=== PATIENT | male | born 1940 | race Asian ===

== ENCOUNTER 2020-06-20 13:15 | Inpatient (IN) | payer MEDICARE, MEDICAID ==
[~2020-06-20] VITALS: Ht 170.2 cm; Wt 65.3 kg
[2020-06-20 13:15] VITALS: BP 130/76
[~2020-06-20 13:15] MED LIST: IBUPROFEN600 MG ORAL
--- NOTE | 2020-06-20 13:15 | NUR ---
ED Nurse Note: Patient YAMILE RA29 from home c/o headache x1 day. Denies head trauma. Hx of dementia. AAOx3, verbally responsive but forgetful. Breathing even and unlabored, on room air. Afebrile. Pt palced on medication manager.
--- NOTE | 2020-06-20 14:02 | Emergency Room Report ---
History of Present Illness General Chief Complaint: Headache Source: EMS Present Illness HPI 79-year-old Japanese male with past medical history of dementia presents with headache x1 day. Is also complaining of generalized weakness and points to his chest saying "it hurt". Also complains of difficulty urinating He is unable to describe pain as sharp or pressure-like. He states it stays "right here" and is nonradiating. Denies history of similar symptoms. Denies head trauma, loss of consciousness, fall, neck pain, rash, nausea or vomiting. History is limited secondary to patient's dementia The patient's symptoms were gradual onset, severity was moderate, duration since day. Quality: Hurting Past medical history: Dementia Past surgical history: Denies Smoking: Unable to obtain Alcohol use: Unable to obtain Drug use: Unable to obtain Review of systems: CONST: No fevers or chills, No night sweats PULMONARY: No productive cough, No shortness of breath CARDIAC: + chest pain, No palpitations GI: No vomiting, No diarrhea , No melena_or_BRBPR : + dysuria, No hematuria, No discharge NEURO: No new_focal_weakness_or_numbness, No confusion, No vision changes 14 point Review of Systems is otherwise negative except per HPI Physical Exam: GENERAL: Awake_alert_ nontoxic, no acute distress Spo2 96% on RA -normal EYES: Extraocular muscles are intact. Conjunctivae clear. Lids without swelling ENT: External nose and ear normal_in_appearance. Oropharynx clear. Head_ atraumatic, Moist_oral_mucosa NECK: No JVD. No meningismus. No thyromegaly. Supple. Trachea midline RESP: Normal respiratory effort. Symmetric rise. No stridor. Clear_to_ auscultation_No_rales_No_wheezes CARDIAC: Regular rate and regular rhythm on_auscultation peripheral with 3-4 pedal edema bilaterally ABDOMEN: Soft. Distended abdomen. Suprapubic tenderness to palpation. Nontender_No_rebound_or_guarding. MSK: Normal muscle tone, without rigidity. Extremities without asymmetric deformity or swelling. SKIN: Warm and dry. No visible cyanosis or pallor NEUROLOGIC: Alert, oriented x1. Motor_and_sensation_grossly_intact. No truncal ataxia. Gait_normal Psych: Normal mood and affect, normal judgment and insight - COORDINATION OF CARE Case was discussed with: Patient , Patient's Physician Any labs and imaging that were ordered were interpreted as part of the medical decision making: Medical Decision Making/Plan: Differential for the patients headache includes primary headache (migraine, tension, cluster), subarachnoid hemorrhage, intracranial mass / tumor, meningitis, encephalitis, increased intracranial pressure, mastoiditis, acute sinusitis, dural venous thrombosis, temporal arteritis, acute angle closure glaucoma, among others. Differential diagnosis CP 2/2 includes acute myocardial infarction, acute coronary syndrome and unstable angina, pulmonary embolism, pneumothorax, pneumonia, and aortic dissection, among others. Patient is currently well appearing with stable vitals. Currently afebrile and no signs of meningismus. EKG shows NSR. No evidence of STEMI, and initial troponin is negative. Chest xray shows bilateral atx vs early infiltrate. No evidence of pneumothorax or significant pleural effusion. UA is negative for urinary tract infection. Patient did have significant difficulty voiding. Therefore a Hicks catheter was inserted with retrieval of 1.9 L of straw-colored urine. Patient looks chronically debilitated. Unable to determine whether he is able to take care of himself at home. Due to his ongoing comorbid medical decisions and advanced age, Will admit to hospitalist Aspirin given. However, given that chest pain is currently resolved, risks likely outweigh benefits of IV heparin at this time, so deferred. The pain is not classic for pericarditis or myocarditis, and the patient has no significant risk factors for a pericardial effusion and has stable vitals signs , unlikely to have tamponade. Pain is not likely to be pulmonary embolism, patient has no significant PE risk factors. The presentation is not consistent with dissection, pain is not severe, radiating to back, or tearing in nature. Has normal bilateral radial and pedal pulses. Rocephin given for possible pneumonia. However given patients presentation and risk factors, patient will be admitted for serial troponins and risk stratification and evaluation for likely stress testing. This patient appears to be a suitable candidate for transfer to telemetry floor at this time with orders from the admitting physician who is aware of the patient's evaluation, ancillary test findings, and current condition, and agrees with treatment and disposition. I spoke with Dr. Degroot, and reviewed the patients presentation, workup, results , and treatment. They will admit the patient for further care and evaluation, and assume care of the patient at this time. Allergies: Coded Allergies: No Known Allergies (Unverified , 03/06/14) COVID-19 Screening Contact w/high risk pt: No Experienced COVID-19 symptoms?: No COVID-19 Testing performed PERFORMANCE TESTER: No Nursing Documentation-PMH Hx Diabetes: Yes Physical Exam Vital Signs Date Time Temp Pulse Resp B/P (MAP) Pulse Ox O2 Delivery O2 Flow Rate FiO2 06/20/20 13:11 98.1 63 19 130/76 (94) 96 Room Air Sp02 EP Interpretation: reviewed, normal Medical Decision Making Diagnostic Impression: Primary Impression: Headache Additional Impressions: Generalized weakness Urinary retention BPH (benign prostatic hyperplasia) Atelectasis Granulomatous lung disease EKG Diagnostic Results PA Scribe Text 12-lead EKG (interpreted by me) Time: 1502 Indication: Rhythm analysis Tracing visualized and Interpreted by me. Rhythm: Normal sinus rhythm Rate: 61 bpm QTc: 438 Morphology: No_significant_ST_elevations_or_depressions, No STEMI Impression: Normal_sinus_rhythm_without_significant_abnormality Rhythm Strip Diag. Results Rhythm Strip Time: 15:24 EP Interpretation: yes Rate: 65 Rhythm: NSR, no PVC's, no ectopy Other Impression Normal sinus rhythm Chest X-Ray Diagnostic Results Chest X-Ray Diagnostic Results : PA Scribe Text CXR 1 view Indication: Chest pain Impression: Mild patchy basilar opacities may represent atelectasis or developing infiltrate. Calcified granuloma right lung versus sclerotic rib focus. Ectatic appearing thoracic aorta. Cardiac silhouette appears borderline enlarged for technique. CT/MRI/US Diagnostic Results CT/MRI/US Diagnostic Results : Impression CT Head no Contrast FINDINGS: There is no acute intracranial hemorrhage, mass effect or cortical edema. Moderate cortical cerebral volume loss. Slight interval increase in size of ventricular system, which remains appropriate for degree of cerebral atrophy. Visualized mastoid air cells and paranasal sinuses are unremarkable. No focal lesions of the bony calvarium or soft tissues of the scalp are seen. IMPRESSION: No evidence of acute intracranial hemorrhage, mass effect or cortical edema. Reevaluation Time: 15:25 Last Vital Signs Date Time Temp Pulse Resp B/P (MAP) Pulse Ox O2 Delivery O2 Flow Rate FiO2 06/20/20 13:15 98.1 63 19 130/76 96 Room Air Status: improved Disposition: ADMITTED INPATIENT Admit Decision Time: 16:06 Condition: Stable Patel,Samara D.O. Jun 20, 2020 14:01
--- NOTE | 2020-06-20 14:51 | Diagnostic Imaging Report ---
CT HEAD WITHOUT CONTRAST INDICATION: Headache and vomiting Technique: Continuous helical CT scanning of the head was performed without intravenous contrast material. Axial and coronal 5 mm sections were generated. Radiation dose was minimized using automated exposure control DOSE: Total Dose Length Product - DLP 964.[address] Dose Index - CTDIvol(s) 53.4 mGy. COMPARISON: Head CT dated 03/06/2014 FINDINGS: There is no acute intracranial hemorrhage, mass effect or cortical edema. Moderate cortical cerebral volume loss. Slight interval increase in size of ventricular system, which remains appropriate for degree of cerebral atrophy. Visualized mastoid air cells and paranasal sinuses are unremarkable. No focal lesions of the bony calvarium or soft tissues of the scalp are seen. IMPRESSION: No evidence of acute intracranial hemorrhage, mass effect or cortical edema. The CT scanner at [facility] is accredited by the [employer] and the scans are performed using protocols designed to limit radiation exposure to as low as reasonably achievable to attain images of sufficient resolution adequate for diagnostic evaluation.
[2020-06-20 15:15] VITALS: BP 134/73
[2020-06-20 15:29] LABS: ANION GAP 9 mmol/L (5-15); BLOOD UREA NITROGEN 19 mg/dL (7-18); CALCIUM 8.7 MG/DL (8.5-10.1); CARBON DIOXIDE 26 MMOL/L (21-32); CHLORIDE 96 MMOL/L (98-107); CREATININE 1.2 MG/DL (0.55-1.30); SODIUM 131 MMOL/L (136-145)
[2020-06-20 15:31] LABS: INR 0.9 (0.9-1.1)
[2020-06-20 15:33] LABS: ALANINE AMINOTRANSFERASE 63 U/L (12-78); ALBUMIN 2.8 G/DL (3.4-5.0); ALBUMIN/GLOBULIN RATIO 0.6 (1.0-2.7); ALKALINE PHOSPHATASE 615 U/L (46-116); ASPARTATE AMINO TRANSFERASE 44 U/L (15-37); BILIRUBIN,TOTAL 0.6 MG/DL (0.2-1.0)
[2020-06-20 15:50] LABS: BASOPHILS % (AUTO) 0.9 % (0.0-2.0); EOSINOPHILS % (AUTO) 1.8 % (0.0-3.0); HEMATOCRIT 32.5 % (42.0-52.0); HEMOGLOBIN 10.7 G/DL (14.2-18.0); LYMPHOCYTES % (AUTO) 17.8 % (20.0-45.0); MEAN CORPUSCULAR VOLUME 90 FL (80-99); MONOCYTES % (AUTO) 5.1 % (1.0-10.0); NEUTROPHILS % (AUTO) 74.4 % (45.0-75.0); PLATELET COUNT 288 K/UL (150-450); RED BLOOD COUNT 3.62 M/UL (4.70-6.10); RED CELL DISTRIBUTION WIDTH 13.2 % (11.6-14.8); WHITE BLOOD COUNT 8.9 K/UL (4.8-10.8)
[2020-06-20] MEDS ORDERED: Metoclopramide 10mg/2ml Inj IVP ONE (16:00)
[2020-06-20] MEDS ORDERED: DiphenhydrAMINE 50mg/ml Inj IVP ONE (16:00)
[2020-06-20] MEDS ORDERED: Aspirin Baby 81mg ORAL ONE ×2 (16:15)
[2020-06-20] MEDS ORDERED: cefTRIAXone 1 GM in NS 55 ML IVPB ONE ×4 (16:15)
[2020-06-20 16:36] LABS: APPEARANCE,URINE CLEAR; BILIRUBIN, URINE NEGATIVE (NEGATIVE); COLOR,URINE PALE YELLOW; GLUCOSE, URINE (UA) 4+ (NEGATIVE); KETONES,URINE 2+ (NEGATIVE); LEUKOCYTE ESTERASE ,URINE NEGATIVE (NEGATIVE); NITRITE,URINE NEGATIVE (NEGATIVE); PH,URINE 5 (4.5-8.0); PROTEIN,URINE NEGATIVE (NEGATIVE); UROBILINOGEN,URINE NORMAL MG/DL (0.0-1.0)
[2020-06-20 17:12] VITALS: BP 131/77
--- NOTE | 2020-06-20 17:54 | Diagnostic Imaging Report ---
History: PAIN Exam: XR CXR 1 VIEW Comparison: FINDINGS: Mild patchy basilar opacities may represent atelectasis or developing infiltrate. Calcified granuloma right lung versus sclerotic rib focus. Ectatic appearing thoracic aorta. Cardiac silhouette appears borderline enlarged for technique. IMPRESSION: Mild patchy basilar opacities may represent atelectasis or developing infiltrate. Calcified granuloma right lung versus sclerotic rib focus. Ectatic appearing thoracic aorta. Cardiac silhouette appears borderline enlarged for technique.
--- NOTE | 2020-06-20 18:40 | NUR ---
ED Nurse Note: Report given to Demarcus ESCALERA.
[2020-06-20 18:41] VITALS: BP 129/74
--- NOTE | 2020-06-20 18:55 | NUR ---
ED Nurse Note: Pt transferred to tele unit with all belongings. No acute distress.
--- NOTE | 2020-06-20 19:18 | NUR ---
NURSE NOTES: Received patient via hospital bed. On room air, respirations unlabored. IV in the Right forearm, site intact. Reports pain over bladder, relief provided with repositioning. Bed low and locked, side rails up x2, oriented to room and surroundings and use of call light with return demonstration.
--- NOTE | 2020-06-20 19:30 | NUR ---
NURSE NOTES: Received patient report from JW Joe. Patient is a new admission brought from ED. Patient shows no signs of distress or pain at the time. Patient is AO x2. Patient was connected to cardiac rehab nurse and is on Sinus Rhythm. Belongings list checked and recorded. IV is patent and flushed. There are no signs of erythema, infiltration, or bleeding. Sacrum and heels checked, pictures are taken. Hicks catheter patent and draining. Vitals are within normal range. Bed is in the lowest position, call light is within reach, side rails up x3. Contacted Dr. Degroot for admission orders.Will continue plan of care.
--- NOTE | 2020-06-20 19:40 | NUR ---
NURSE HAND-OFF REPORT: Important Events on Shift:[admission] Patient Status: [] Diet: [pending] Pending Orders: [admission orders] Pending Results/Labs:[] Pending MD notification:[admission orders] Latest Vital Signs: Temperature 98.3 , Pulse 86 , B/P 125 /76 , Respiratory Rate 16 , O2 SAT 98 , Room Air, O2 Flow Rate . Vital Sign Comment: [] EKG Rhythm: Sinus Rhythm Rhythm change?: MD Notified?: - MD Response: Latest Hawkins Fall Score: Fall Risk: Safety Measures: Call light , Bed Alarm , Side Rails , Bed position . Fall Precautions: Report given to [Madhuri ESCALERA].
[2020-06-20 20:00] VITALS: BP 158/66
--- NOTE | 2020-06-20 20:00 | NUR ---
NURSE NOTES: Dr. Irene informed of blood pressure being 158/66. He ordered Clonidine 0.2 mg PO Q4 PRN for SBP >170.
[2020-06-20] MEDS ORDERED: cloNIDine 0.2mg Tab ORAL PRN (21:30)
[2020-06-20] MEDS: Heparin 5000 units/ml inj SUBQ SCH (22:49)
[2020-06-21] VITALS: BP 150/58
[2020-06-21 04:00] VITALS: BP 139/58
--- NOTE | 2020-06-21 05:30 | NUR ---
NURSE NOTES: EKG done. Shows Sinus Rhythm. Will notify patient.
[2020-06-21] MEDS: NovoLOG Insulin Flexpen SUBQ SCH ×3 (06:26→16:56)
--- NOTE | 2020-06-21 07:39 | NUR ---
HAND-OFF: Report given to JW Reyes. Patient shows no signs of distress or pain at the time. Endorsed plan of care.
--- NOTE | 2020-06-21 07:49 | NUR ---
NURSE NOTES: Received report from JW Dhaliwal. Pt Awake, alert. No s/s of acute respiratory and cardiac distress. No c/o pain. IVF infusing on right FA. F/C draining dark lc colored urine with minimal amount of blood clots seen on tubing. Bed in low position, side rails up x3 and call light within reach. Will continue to monitor.
[2020-06-21 08:00] VITALS: BP 138/60
[2020-06-21 08:25] LABS: BASOPHILS % (AUTO) 0.8 % (0.0-2.0); EOSINOPHILS % (AUTO) 2.2 % (0.0-3.0); HEMATOCRIT 32.1 % (42.0-52.0); HEMOGLOBIN 10.5 G/DL (14.2-18.0); LYMPHOCYTES % (AUTO) 18.6 % (20.0-45.0); MEAN CORPUSCULAR VOLUME 89 FL (80-99); NEUTROPHILS % (AUTO) 72.5 % (45.0-75.0); PLATELET COUNT 289 K/UL (150-450); RED CELL DISTRIBUTION WIDTH 12.6 % (11.6-14.8); WHITE BLOOD COUNT 7.3 K/UL (4.8-10.8)
[2020-06-21 08:40] LABS: ANION GAP 9 mmol/L (5-15); CALCIUM 7.8 MG/DL (8.5-10.1); CARBON DIOXIDE 26 MMOL/L (21-32); CHLORIDE 103 MMOL/L (98-107); CREATININE 1.1 MG/DL (0.55-1.30); POTASSIUM 3.8 MMOL/L (3.5-5.1); SODIUM 138 MMOL/L (136-145)
[2020-06-21 08:56] LABS: BLOOD UREA NITROGEN 16 mg/dL (7-18)
[2020-06-21] MEDS: Heparin 5000 units/ml inj SUBQ SCH ×2 (09:19→22:25)
--- NOTE | 2020-06-21 11:33 | NUR ---
*-* DISCHARGE PLANNING*-* PATIENT HAS BEEN REFERRED TO: DALTON MACDONALD P: [phone]
[2020-06-21 12:00] VITALS: BP 142/56
--- NOTE | 2020-06-21 13:29 | Cardiac Electrophysiology PN ---
Subjective Subjective [id number] Objective Last 24 Hour Vital Signs Date Time Temp Pulse Resp B/P (MAP) Pulse Ox O2 Delivery O2 Flow Rate FiO2 06/21/20 12:00 97.5 64 20 142/56 (84) 98 06/21/20 09:00 Room Air 06/21/20 08:00 73 06/21/20 08:00 97.7 73 18 138/60 (86) 97 06/21/20 04:00 97.9 60 18 139/58 (85) 97 06/21/20 04:00 58 06/21/20 00:00 59 06/21/20 00:00 98.2 59 18 150/58 (88) 100 06/20/20 23:46 Room Air 06/20/20 20:00 97.7 62 20 158/66 (96) 99 06/20/20 19:35 62 06/20/20 18:55 98.3 86 16 125/76 98 06/20/20 18:41 98.1 73 17 129/74 98 Room Air 06/20/20 17:12 98.1 65 18 131/77 97 Room Air 06/20/20 15:15 98.1 67 17 134/73 98 Room Air Intake and Output 06/20/20 06/21/20 19:00 07:00 Output Total 1600 ml 620 ml Balance -1600 ml -620 ml Output Urine Total 1600 ml 620 ml Laboratory Tests Test 06/20/20 14:55 06/20/20 16:06 06/20/20 23:00 06/21/20 00:55 White Blood Count 8.9 K/UL (4.8-10.8) Red Blood Count 3.62 M/UL (4.70-6.10) L Hemoglobin 10.7 G/DL (14.2-18.0) L Hematocrit 32.5 % (42.0-52.0) L Mean Corpuscular Volume 90 FL (80-99) Mean Corpuscular Hemoglobin 29.5 PG (27.0-31.0) Mean Corpuscular Hemoglobin Concent 32.8 G/DL (32.0-36.0) Red Cell Distribution Width 13.2 % (11.6-14.8) Platelet Count 288 K/UL (150-450) Mean Platelet Volume 6.0 FL (6.5-10.1) L Neutrophils (%) (Auto) 74.4 % (45.0-75.0) Lymphocytes (%) (Auto) 17.8 % (20.0-45.0) L Monocytes (%) (Auto) 5.1 % (1.0-10.0) Eosinophils (%) (Auto) 1.8 % (0.0-3.0) Basophils (%) (Auto) 0.9 % (0.0-2.0) Prothrombin Time 10.2 SEC (9.30-11.50) Prothromb Time International Ratio 0.9 (0.9-1.1) Activated Partial Thromboplast Time 25 SEC (23-33) Sodium Level 131 MMOL/L (136-145) L Potassium Level 4.0 MMOL/L (3.5-5.1) Chloride Level 96 MMOL/L (98-107) L Carbon Dioxide Level 26 MMOL/L (21-32) Anion Gap 9 mmol/L (5-15) Blood Urea Nitrogen 19 mg/dL (7-18) H Creatinine 1.2 MG/DL (0.55-1.30) Estimat Glomerular Filtration Rate 58.6 mL/min (>60) Glucose Level 320 MG/DL (74-106) H Calcium Level 8.7 MG/DL (8.5-10.1) Total Bilirubin 0.6 MG/DL (0.2-1.0) Aspartate Amino Transf (AST/SGOT) 44 U/L (15-37) H Alanine Aminotransferase (ALT/SGPT) 63 U/L (12-78) Alkaline Phosphatase 615 U/L (46-116) H Troponin I 0.007 ng/mL (0.000-0.056) 0.016 ng/mL (0.000-0.056) Total Protein 7.5 G/DL (6.4-8.2) Albumin 2.8 G/DL (3.4-5.0) L Globulin 4.7 g/dL Albumin/Globulin Ratio 0.6 (1.0-2.7) L Urine Color Pale yellow Urine Appearance Clear Urine pH 5 (4.5-8.0) Urine Specific [place] 1.010 (1.005-1.035) Urine Protein Negative (NEGATIVE) Urine Glucose (UA) 4+ (NEGATIVE) H Urine Ketones 2+ (NEGATIVE) H Urine Blood Negative (NEGATIVE) Urine Nitrite Negative (NEGATIVE) Urine Bilirubin Negative (NEGATIVE) Urine Urobilinogen Normal MG/DL (0.0-1.0) Urine Leukocyte Esterase Negative (NEGATIVE) POC Whole Blood Glucose 291 MG/DL (74-106) H Test 06/21/20 06:21 06/21/20 08:05 POC Whole Blood Glucose Pending White Blood Count 7.3 K/UL (4.8-10.8) Red Blood Count 3.60 M/UL (4.70-6.10) L Hemoglobin 10.5 G/DL (14.2-18.0) L Hematocrit 32.1 % (42.0-52.0) L Mean Corpuscular Volume 89 FL (80-99) Mean Corpuscular Hemoglobin 29.3 PG (27.0-31.0) Mean Corpuscular Hemoglobin Concent 32.8 G/DL (32.0-36.0) Red Cell Distribution Width 12.6 % (11.6-14.8) Platelet Count 289 K/UL (150-450) Mean Platelet Volume 5.7 FL (6.5-10.1) L Neutrophils (%) (Auto) 72.5 % (45.0-75.0) Lymphocytes (%) (Auto) 18.6 % (20.0-45.0) L Monocytes (%) (Auto) 6.0 % (1.0-10.0) Eosinophils (%) (Auto) 2.2 % (0.0-3.0) Basophils (%) (Auto) 0.8 % (0.0-2.0) Sodium Level 138 MMOL/L (136-145) Potassium Level 3.8 MMOL/L (3.5-5.1) Chloride Level 103 MMOL/L (98-107) Carbon Dioxide Level 26 MMOL/L (21-32) Anion Gap 9 mmol/L (5-15) Blood Urea Nitrogen 16 mg/dL (7-18) Creatinine 1.1 MG/DL (0.55-1.30) Estimat Glomerular Filtration Rate > 60 mL/min (>60) Glucose Level 351 MG/DL (74-106) H Calcium Level 7.8 MG/DL (8.5-10.1) L Troponin I 0.018 ng/mL (0.000-0.056) Toluie,Juno MD Jun 21, 2020 13:29
[2020-06-21] MEDS ORDERED: Lexiscan 0.4mg/5ml syringe IV PRN (13:30)
--- NOTE | 2020-06-21 15:45 | History and Physical Report ---
DATE OF ADMISSION: 06/20/2020 DATE AND TIME SEEN: 06/21/2020 at 9 a.m. CONSULTANTS: 1. Ferny Price MD. 2. Macarena Chen MD. 3. Juno Irene MD. CHIEF COMPLAINT: Chest pain, weakness, headache, peripheral edema. BRIEF HISTORY: This is a 79-year-old male, who lives at home, presented with above-mentioned diagnoses. Currently, sleeping in bed, not talking much. REVIEW OF SYSTEMS: Unavailable. PAST MEDICAL HISTORY: Dementia, BPH, weakness. PAST SURGICAL HISTORY: Unknown. ALLERGIES: Denies. MEDICATIONS: Include insulin, ibuprofen, clonidine, ceftriaxone, Reglan, Compazine. SOCIAL HISTORY: Unable to obtain secondary to the patient's lethargy. OBJECTIVE: GENERAL: Sleeping in bed, not talking much. VITAL SIGNS: Temperature is 97 degrees, pulse 73, respirations 18, blood pressure 130/60. CARDIOVASCULAR: No murmur. LUNGS: Distant and clear. ABDOMEN: Bowel sounds positive. Nontender. Nondistended. EXTREMITIES: No cyanosis, clubbing, or edema. NEUROLOGIC: The patient moves all extremities, slightly weak. LABORATORY AND DIAGNOSTIC DATA: Labs at this time show hemoglobin and hematocrit 10/32, otherwise CBC is normal. BMP shows glucose 351. Troponin 0.016, 0.018. Calcium . INR 0.9. Urinalysis 2+ ketones, 4+ glucose. ASSESSMENT: 1. Chest pain. 2. Weakness. 3. Headache. 4. Peripheral edema. 5. Anemia. 6. Diabetes. 7. Urinary retention. PLAN: 1. Troponin q.8 h. x3. 2. EKG in the morning. 3. Blood pressure, blood sugar, and pain control. 4. Dietary followup. 5. Resume home medications. 6. PT and dietary evaluation. 7. CBC and BMP in the morning. 8. We will add evaluation. Oscar Degroot D.O. DR: LIBERTAD JOB#: [id number] CC:
[2020-06-21 16:00] VITALS: BP 150/77
--- NOTE | 2020-06-21 16:15 | NUR ---
*-* DISCHARGE PLANNING*-* PATIENT HAS BEEN REFERRED TO: DALTON MACDONALD P: [phone] S/W LEAAN, REQUESTING PT NOTES, NEED PHYSICAL THERAPY NOTES.
[2020-06-21] MEDS: Memantine 5 MG TAB ORAL SCH (17:28)
--- NOTE | 2020-06-21 18:00 | Consultation ---
DATE OF CONSULTATION: 06/21/2020 CARDIOLOGY CONSULTATION REFERRING PHYSICIAN: Oscar Degroot D.O. REASON FOR THE CONSULTATION: Chest pain and headache. HISTORY OF PRESENT ILLNESS: The patient is a 79-year-old Arabic gentleman with history of dementia, presents to the emergency room with 1 day of headache as well as generalized weakness. The patient also pointed to his chest stating it hurts. The pain was pressure-like, was nonradiating. The patient's EKG did not show any acute ischemic changes. The patient was admitted and cardiology consultation was obtained for further management. REVIEW OF SYSTEMS: Negative other than what is mentioned in history of present illness. PAST MEDICAL HISTORY: As mentioned above. FAMILY HISTORY: Noncontributory. SOCIAL HISTORY: No history of smoking or drinking. PHYSICAL EXAMINATION: VITAL SIGNS: Blood pressure 142/56, pulse 64, respirations 20. NECK: No JVD. LUNGS: Clear. CARDIOVASCULAR: Regular S1 and S2 with no gallop or murmur. ABDOMEN: Soft. EXTREMITIES: No pitting edema. His EKG is normal. LABORATORY AND DIAGNOSTIC DATA: White count 7.7, hemoglobin 10.5, hematocrit 32, and platelet count of 289. Sodium 138, potassium 3.8, BUN of 16, creatinine 1.1, and glucose of 351. Troponin negative x2. ASSESSMENT AND PLAN: 1. Chest pain. EKG is nonischemic. The patient will be ruled out for myocardial infarction. We will get an echocardiogram and schedule the patient for a stress test on Tuesday. 2. Hypertension, on p.r.n. clonidine. 3. UTI, on ceftriaxone. Thank you very much for allowing me to participate in the care of this patient. Please do not hesitate to contact me for any questions regarding my evaluation. Juno Irene M.D. DR: REAL JOB#: [id number] CC:
[2020-06-21 20:00] VITALS: BP 143/70
[2020-06-21] MEDS: Levemir Flexpen SUBQ SCH (22:24)
[2020-06-22] VITALS (7 sets, daily range): BP systolic 126–167; BP diastolic 62–71
[2020-06-22] MEDS: NovoLOG Insulin Flexpen SUBQ SCH ×7 (07:16→21:00)
--- NOTE | 2020-06-22 07:53 | NUR ---
NURSE NOTES: report was delayed Jeremy/rn, was assisting another pt. pt on director of operations, no signs of cardiac or respiratory distress at this time. pt has no complains of pain at this time. Bed locked and in lowest position. Call light within reach, side rails up x2 for safety. Will continue to monitor pt.
[2020-06-22 07:58] LABS: BASOPHILS % (AUTO) 1.1 % (0.0-2.0); EOSINOPHILS % (AUTO) 3.5 % (0.0-3.0); HEMATOCRIT 32.9 % (42.0-52.0); LYMPHOCYTES % (AUTO) 28.2 % (20.0-45.0); MEAN CORPUSCULAR VOLUME 89 FL (80-99); MONOCYTES % (AUTO) 5.6 % (1.0-10.0); NEUTROPHILS % (AUTO) 61.7 % (45.0-75.0); PLATELET COUNT 324 K/UL (150-450); RED BLOOD COUNT 3.69 M/UL (4.70-6.10); RED CELL DISTRIBUTION WIDTH 12.4 % (11.6-14.8); WHITE BLOOD COUNT 7.8 K/UL (4.8-10.8)
--- NOTE | 2020-06-22 08:09 | NUR ---
HAND-OFF: Report given to Lucia Mullins RN. Pt in stable condition, plan of care endorsed.
[2020-06-22 08:15] LABS: ANION GAP 6 mmol/L (5-15); BLOOD UREA NITROGEN 8 mg/dL (7-18); CARBON DIOXIDE 28 MMOL/L (21-32); CHLORIDE 100 MMOL/L (98-107); CREATININE 1.1 MG/DL (0.55-1.30); POTASSIUM 2.8 MMOL/L (3.5-5.1); SODIUM 134 MMOL/L (136-145)
--- NOTE | 2020-06-22 08:51 | General Progress Note ---
Assessment/Plan Problem List: (1) Weak ICD Codes: R53.1 - Weakness SNOMED: 12728860 (2) Diabetes ICD Codes: E11.9 - Type 2 diabetes mellitus without complications SNOMED: 78979531 (3) Generalized weakness ICD Codes: R53.1 - Weakness SNOMED: 47115825 (4) Headache ICD Codes: R51 - Headache SNOMED: 68769628 (5) BPH (benign prostatic hyperplasia) ICD Codes: N40.0 - Benign prostatic hyperplasia without lower urinary tract symptoms SNOMED: 248960721 (6) Urinary retention ICD Codes: R33.9 - Retention of urine, unspecified SNOMED: 007118901 Status: unchanged Assessment/Plan: pt diet pain control cbc bmp am aru eval Subjective Constitutional: Reports: weakness Allergies: Coded Allergies: No Known Allergies (Unverified , 03/06/14) All Systems: reviewed and negative except above Subjective sleepy calm Objective Last 24 Hour Vital Signs Date Time Temp Pulse Resp B/P (MAP) Pulse Ox O2 Delivery O2 Flow Rate FiO2 06/22/20 08:46 63 126/62 (83) 06/22/20 08:15 97.5 68 18 167/68 (101) 97 06/22/20 04:00 57 06/22/20 04:00 97.9 57 20 141/66 (91) 95 06/22/20 00:00 98.2 59 20 143/71 (95) 94 06/22/20 00:00 59 06/21/20 21:00 Room Air 06/21/20 20:00 97.7 61 20 143/70 (94) 95 06/21/20 16:00 97.5 61 18 150/77 (101) 97 06/21/20 16:00 60 06/21/20 14:00 64 06/21/20 12:00 97.5 64 20 142/56 (84) 98 06/21/20 09:00 Room Air Intake and Output 06/21/20 06/22/20 19:00 07:00 Intake Total 360 ml 200 ml Output Total 1600 ml 2000 ml Balance -1240 ml -1800 ml Intake Oral 360 ml 200 ml Output Urine Total 1600 ml 2000 ml Laboratory Tests 06/21/20 16:15: Troponin I 0.020 06/21/20 16:39: POC Whole Blood Glucose 333H 06/22/20 07:12: White Blood Count 7.8, Red Blood Count 3.69L, Hemoglobin 11.0L, Hematocrit 32.9L , Mean Corpuscular Volume 89, Mean Corpuscular Hemoglobin 29.7, Mean Corpuscular Hemoglobin Concent 33.3, Red Cell Distribution Width 12.4, Platelet Count 324, Mean Platelet Volume 5.2L, Neutrophils (%) (Auto) 61.7, Lymphocytes ( %) (Auto) 28.2, Monocytes (%) (Auto) 5.6, Eosinophils (%) (Auto) 3.5H, Basophils (%) (Auto) 1.1, Sodium Level 134L, Potassium Level 2.8L, Chloride Level 100, Carbon Dioxide Level 28, Anion Gap 6, Blood Urea Nitrogen 8, Creatinine 1.1, Estimat Glomerular Filtration Rate > 60, Glucose Level 166#H, Hemoglobin A1c 14.8H, Calcium Level 8.0L Height (Feet): 5 Height (Inches): 7.00 Weight (Pounds): 142 General Appearance: lethargic EENT: normal ENT inspection Neck: normal alignment Cardiovascular: normal peripheral pulses, normal rate, regular rhythm Respiratory/Chest: chest wall non-tender, lungs clear, normal breath sounds Abdomen: normal bowel sounds, non tender, soft Extremities: normal inspection Edema: no edema noted Arm (L), no edema noted Arm (R), no edema noted Leg (L), no edema noted Leg (R), no edema noted Pedal (L), no edema noted Pedal (R), no edema noted Generalized Neurologic: motor weakness Skin: normal pigmentation, warm/dry Oscar Degroot DO Jun 22, 2020 08:51
[2020-06-22] MEDS: Levemir Flexpen SUBQ SCH ×2 (09:38→21:41)
[2020-06-22] MEDS: Heparin 5000 units/ml inj SUBQ SCH ×2 (09:40→21:40)
[2020-06-22] MEDS: Memantine 5 MG TAB ORAL SCH ×2 (09:40→17:17)
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
--- NOTE | 2020-06-22 14:22 | Cardiac Electrophysiology PN ---
Assessment/Plan Assessment/Plan 1. Chest pain. EKG is nonischemic. The patient was ruled out for myocardial infarction. Echocardiogram EF 60%. Scheduled for stress test on Tuesday. 2. Hypertension, on p.r.n. clonidine. 3. UTI, on ceftriaxone. Subjective Subjective No CP or SOB. Objective Last 24 Hour Vital Signs Date Time Temp Pulse Resp B/P (MAP) Pulse Ox O2 Delivery O2 Flow Rate FiO2 06/22/20 12:00 64 06/22/20 09:00 Room Air 06/22/20 08:46 63 126/62 (83) 06/22/20 08:15 97.5 68 18 167/68 (101) 97 06/22/20 08:00 67 06/22/20 04:00 57 06/22/20 04:00 97.9 57 20 141/66 (91) 95 06/22/20 00:00 98.2 59 20 143/71 (95) 94 06/22/20 00:00 59 06/21/20 21:00 Room Air 06/21/20 20:00 97.7 61 20 143/70 (94) 95 06/21/20 16:00 97.5 61 18 150/77 (101) 97 06/21/20 16:00 60 Intake and Output 06/21/20 06/22/20 19:00 07:00 Intake Total 360 ml 200 ml Output Total 1600 ml 2000 ml Balance -1240 ml -1800 ml Intake Oral 360 ml 200 ml Output Urine Total 1600 ml 2000 ml Laboratory Tests Test 06/21/20 16:15 06/21/20 16:39 06/22/20 07:12 06/22/20 09:35 Troponin I 0.020 ng/mL (0.000-0.056) POC Whole Blood Glucose 333 MG/DL (74-106) H 248 MG/DL (74-106) H White Blood Count 7.8 K/UL (4.8-10.8) Red Blood Count 3.69 M/UL (4.70-6.10) L Hemoglobin 11.0 G/DL (14.2-18.0) L Hematocrit 32.9 % (42.0-52.0) L Mean Corpuscular Volume 89 FL (80-99) Mean Corpuscular Hemoglobin 29.7 PG (27.0-31.0) Mean Corpuscular Hemoglobin Concent 33.3 G/DL (32.0-36.0) Red Cell Distribution Width 12.4 % (11.6-14.8) Platelet Count 324 K/UL (150-450) Mean Platelet Volume 5.2 FL (6.5-10.1) L Neutrophils (%) (Auto) 61.7 % (45.0-75.0) Lymphocytes (%) (Auto) 28.2 % (20.0-45.0) Monocytes (%) (Auto) 5.6 % (1.0-10.0) Eosinophils (%) (Auto) 3.5 % (0.0-3.0) H Basophils (%) (Auto) 1.1 % (0.0-2.0) Sodium Level 134 MMOL/L (136-145) L Potassium Level 2.8 MMOL/L (3.5-5.1) L Chloride Level 100 MMOL/L (98-107) Carbon Dioxide Level 28 MMOL/L (21-32) Anion Gap 6 mmol/L (5-15) Blood Urea Nitrogen 8 mg/dL (7-18) Creatinine 1.1 MG/DL (0.55-1.30) Estimat Glomerular Filtration Rate > 60 mL/min (>60) Glucose Level 166 MG/DL (74-106) #H Hemoglobin A1c 14.8 % (4.3-6.0) H Calcium Level 8.0 MG/DL (8.5-10.1) L Test 06/22/20 12:37 POC Whole Blood Glucose 312 MG/DL (74-106) H Microbiology Date/Time Source Procedure Growth Status 06/20/20 15:00 Blood Blood Culture - Preliminary NO GROWTH AFTER 24 HOURS Resulted 06/20/20 14:55 Blood Blood Culture - Preliminary NO GROWTH AFTER 24 HOURS Resulted Objective NECK: No JVD. LUNGS: Clear. CARDIOVASCULAR: Regular S1 and S2 with no gallop or murmur. ABDOMEN: Soft. EXTREMITIES: No pitting edema. His EKG is normal. Juno Irene MD Jun 22, 2020 14:22
--- NOTE | 2020-06-22 16:15 | Progress Note ---
DATE: 06/22/2020 SUBJECTIVE: The patient is a 79-year-old male with urinary tract infection. He is very confused and disorganized. He is very irritable, confused and mood labile. He has got no logical plan for his own self-care. He has got feelings of helplessness, hopelessness, low energy, poor appetite, and loss of interest in activity. MENTAL STATUS EXAMINATION: This is a 79-year-old male. Appearance is disheveled. Attitude, irritable and agitated. Affect, guarded and restricted. Intellect poor. Mood, depressed and anxious. Motor activity, psychomotor agitation. Attention span is poor. Orientation x2. Speech is pressured. Thought process, disorganized and illogical. Insight and judgment is poor. DIAGNOSIS: Major depressive disorder, severe, recurrent with psychotic features, rule out dementia with psychosis. PLAN: Continue him on Namenda and 20 minutes of insight-oriented psychotherapy to help him understand his physical and medical condition so he has less depression, anxiety, and better impulse control. Macarena Chen M.D. DR: ANNETTA JOB#: [id number] CC:
--- NOTE | 2020-06-22 16:27 | NUR ---
PT Note PT kashif completed, treatment initiated. Patient has muscle weakness with decreased balance, requiring assist in his mobility and gait. Patient needs PT to increase his muscle strength and balance to improve his safety in mobility and gait. Addendum: 06/22/20 at 1627 by DEV WOODS PT Amended: Links added.
[2020-06-22 17:06] LABS: % IRON SATURATION 26 % (15-50); IRON 43 ug/dL (50-175); TOTAL IRON BINDING CAPACITY 164 ug/dL (250-450)
[2020-06-22] MEDS: Docusate 100mg cap ORAL SCH (18:00)
[2020-06-22] MEDS ORDERED: Solu-MEDROL 125mg Inj IVP ONE (18:30)
--- NOTE | 2020-06-22 19:05 | NUR ---
NURSE NOTES: NURSE NOTES: pt felt constipated, doctor ordered dulcolax. pt. was able to have a BM 30min later
--- NOTE | 2020-06-22 19:15 | NUR ---
NURSE NOTES: 1805 notified ajtGisele Galarza and JUAN Allen about pt is more lethargic and not accepting any PO meds. Also pt is wheezing and he was deep suctioned sating at 98%. JUAN Allen ordered solumedrol 40mg IV once. Doctor Michell, asked to hold off on any excessive sedatives and Haldol for this pt. Addendum: 06/22/20 at 1950 by Lucia Pinto RN wrong pt.
--- NOTE | 2020-06-22 19:39 | NUR ---
NURSE HAND-OFF REPORT: Important Events on Shift: npo at midnight, stress test tomorrow Patient Status: in stable condition Diet: npo Pending Orders: Pending Results/Labs: Pending MD notification: Latest Vital Signs: Temperature 97.7 , Pulse 62 , B/P 128 /68 , Respiratory Rate 18 , O2 SAT 98 , Room Air, O2 Flow Rate . Vital Sign Comment: EKG Rhythm: Sinus Rhythm Rhythm change?: N MD Notified?: - MD Response: Latest Hawkins Fall Score: 45 Fall Risk: High Risk Safety Measures: Call light Within Reach, Bed Alarm Zone 2, Side Rails Side Rails x3, Bed position Low and Locked. Fall Precautions: y Yellow Socks y Yellow Gown y Door Sign Patient Fall Education y Report given to Bhumika/rn AT 1920
[2020-06-23] VITALS: BP 134/65
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
[2020-06-23] MEDS: LORazepam 0.5mg tab ORAL PRN ×2 (01:40→20:27)
[2020-06-23 04:00] VITALS: BP 144/59
[2020-06-23] MEDS: NovoLOG Insulin Flexpen SUBQ SCH ×7 (06:30→20:39)
[2020-06-23 07:14] LABS: ANION GAP 4 mmol/L (5-15); BLOOD UREA NITROGEN 9 mg/dL (7-18); CALCIUM 8.1 MG/DL (8.5-10.1); CARBON DIOXIDE 27 MMOL/L (21-32); CHLORIDE 104 MMOL/L (98-107); POTASSIUM 4.3 MMOL/L (3.5-5.1); SODIUM 135 MMOL/L (136-145)
[2020-06-23 07:19] LABS: BASOPHILS % (AUTO) 1.2 % (0.0-2.0); EOSINOPHILS % (AUTO) 4.2 % (0.0-3.0); HEMATOCRIT 34.1 % (42.0-52.0); HEMOGLOBIN 11.1 G/DL (14.2-18.0); LYMPHOCYTES % (AUTO) 26.9 % (20.0-45.0); MEAN CORPUSCULAR VOLUME 89 FL (80-99); MONOCYTES % (AUTO) 6.5 % (1.0-10.0); NEUTROPHILS % (AUTO) 61.2 % (45.0-75.0); PLATELET COUNT 322 K/UL (150-450); RED BLOOD COUNT 3.81 M/UL (4.70-6.10); RED CELL DISTRIBUTION WIDTH 12.3 % (11.6-14.8); WHITE BLOOD COUNT 8.5 K/UL (4.8-10.8)
--- NOTE | 2020-06-23 07:30 | NUR ---
NURSE NOTES: Received pt from Ana Laura RN, Pt is awake and alert, pt is in RA, no SOB or acute respiratory distress noted. pt is on continues heart monitoring, pt has intact iv access RH 22G is running well. pt is NPO due to stress test today. No complain of pain at this moment. all needs attended, bed is locked and is in the lowest position, call light within easy reach. will continue to monitor.
--- NOTE | 2020-06-23 07:46 | NUR ---
NURSE HAND-OFF REPORT: Important Events on Shift: Pt requests to DC with castillo in place. Endorsed to dayshift to inform CM. Patient Status: Stable Diet: NPO Pending Orders: Cardiac stress test Pending Results/Labs: None Pending MD notification: Checklist complete Latest Vital Signs: Temperature 98.6 , Pulse 77 , B/P 144 /59 , Respiratory Rate 20 , O2 SAT 95 , Room Air, O2 Flow Rate . Vital Sign Comment: EKG Rhythm: Sinus Rhythm Rhythm change?: N MD Notified?: - MD Response: Latest Hawkins Fall Score: 45 Fall Risk: High Risk Safety Measures: Call light Within Reach, Bed Alarm Zone 2, Side Rails Side Rails x3, Bed position Low and Locked. Fall Precautions: Yellow Socks Yes Yellow Gown Yes Door Sign Yes Patient Fall Education Yes Report given to Pedro Hernandez RN
[2020-06-23 08:00] VITALS: BP 140/72
[2020-06-23] MEDS: Levemir Flexpen SUBQ SCH ×2 (09:00→20:38)
[2020-06-23] MEDS: Docusate 100mg cap ORAL SCH ×2 (09:41→17:01)
[2020-06-23] MEDS: Memantine 5 MG TAB ORAL SCH ×2 (09:41→17:01)
--- NOTE | 2020-06-23 09:41 | General Progress Note ---
Assessment/Plan Problem List: (1) Weak ICD Codes: R53.1 - Weakness SNOMED: 87098331 (2) Diabetes ICD Codes: E11.9 - Type 2 diabetes mellitus without complications SNOMED: 50972805 (3) Generalized weakness ICD Codes: R53.1 - Weakness SNOMED: 99535232 (4) Headache ICD Codes: R51 - Headache SNOMED: 87320246 (5) BPH (benign prostatic hyperplasia) ICD Codes: N40.0 - Benign prostatic hyperplasia without lower urinary tract symptoms SNOMED: 596142503 (6) Urinary retention ICD Codes: R33.9 - Retention of urine, unspecified SNOMED: 596025843 Status: unchanged Assessment/Plan: pt diet pain control cbc bmp am aru eval Subjective Constitutional: Reports: weakness Allergies: Coded Allergies: No Known Allergies (Unverified , 03/06/14) All Systems: reviewed and negative except above Subjective sleepy calm Objective Last 24 Hour Vital Signs Date Time Temp Pulse Resp B/P (MAP) Pulse Ox O2 Delivery O2 Flow Rate FiO2 06/23/20 08:00 97.3 61 20 140/72 (94) 98 06/23/20 07:55 59 06/23/20 04:00 63 06/23/20 04:00 98.6 77 20 144/59 (87) 95 06/23/20 00:00 67 06/23/20 00:00 98.6 69 18 134/65 (88) 95 06/22/20 21:00 Room Air 06/22/20 20:00 68 06/22/20 20:00 97.4 65 18 138/69 (92) 95 06/22/20 16:00 97.7 62 18 128/68 (88) 98 06/22/20 16:00 62 06/22/20 12:00 98.8 60 20 141/65 (90) 99 06/22/20 12:00 64 Intake and Output 06/22/20 06/23/20 19:00 07:00 Intake Total 360 ml 240 ml Output Total 1500 ml 3300 ml Balance -1140 ml -3060 ml Intake Oral 360 ml 240 ml Output Urine Total 1500 ml 3300 ml # Voids 1 Laboratory Tests 06/22/20 12:37: POC Whole Blood Glucose 312H 06/22/20 16:00: Erythrocyte Sedimentation Rate 70H, Iron Level 43L, Total Iron Binding Capacity 164L, Percent Iron Saturation 26, Unsaturated Iron Binding 121, C-Reactive Protein, Quantitative 2.3H, Vitamin B12 Level 1103H, Methylmalonic Acid [Pending ], Thyroid Stimulating Hormone (TSH) 1.285 06/22/20 21:33: POC Whole Blood Glucose 211H 06/23/20 06:30: White Blood Count 8.5, Red Blood Count 3.81L, Hemoglobin 11.1L, Hematocrit 34.1L , Mean Corpuscular Volume 89, Mean Corpuscular Hemoglobin 29.1, Mean Corpuscular Hemoglobin Concent 32.6, Red Cell Distribution Width 12.3, Platelet Count 322, Mean Platelet Volume 5.0L, Neutrophils (%) (Auto) 61.2, Lymphocytes ( %) (Auto) 26.9, Monocytes (%) (Auto) 6.5, Eosinophils (%) (Auto) 4.2H, Basophils (%) (Auto) 1.2, Sodium Level 135L, Potassium Level 4.3#, Chloride Level 104, Carbon Dioxide Level 27, Anion Gap 4L, Blood Urea Nitrogen 9, Creatinine 1.0, Estimat Glomerular Filtration Rate > 60, Glucose Level 176H, Calcium Level 8.1L Height (Feet): 5 Height (Inches): 7.00 Weight (Pounds): 142 General Appearance: lethargic EENT: normal ENT inspection Neck: normal alignment Cardiovascular: normal peripheral pulses, normal rate, regular rhythm Respiratory/Chest: chest wall non-tender, lungs clear, normal breath sounds Abdomen: normal bowel sounds, non tender, soft Extremities: normal inspection Edema: no edema noted Arm (L), no edema noted Arm (R), no edema noted Leg (L), no edema noted Leg (R), no edema noted Pedal (L), no edema noted Pedal (R), no edema noted Generalized Neurologic: motor weakness Skin: normal pigmentation, warm/dry Oscar Degroot DO Jun 23, 2020 09:41
[2020-06-23] MEDS: Heparin 5000 units/ml inj SUBQ SCH ×2 (09:42→20:27)
--- NOTE | 2020-06-23 11:00 | NUR ---
RD ASSESSMENT & RECOMMENDATIONS SEE CARE ACTIVITY FOR COMPLETE ASSESSMENT DAILY ESTIMATED NEEDS: Needs based on Diabetes/ 63.6kg 25-30 kcals/kg 0795-6132 total kcals 1-1.3 g protein/kg 64-83 g total protein 25-30 mL/kg 8577-8531 total fluid mLs NUTRITION DIAGNOSIS: Altered nutrition related lab values R/T uncontrolled DM as evidenced by A1C of 14.8, BG 300's upon adm -> 176, elev POC glu, Uglu 4+ and U ketones 2+. CURRENT DIET:CCHO MED -> NPO for stress test PO DIET RECOMMENDATIONS: CCHO LOW + double protein portions ADDITIONAL RECOMMENDATIONS: * Standing wt for accurate CBW * Monitor BGs, need to adjust insulin -> consider endo consult * Monitor for hypoglycemia with increased insulin regimen * Monitor lytes, replete as needed .
[2020-06-23 12:00] VITALS: BP 149/72
--- NOTE | 2020-06-23 12:42 | Cardiac Electrophysiology PN ---
Assessment/Plan Assessment/Plan 1. Chest pain. EKG is nonischemic. Ruled out for myocardial infarction. EF 60 %. Scheduled for stress test today 2. Hypertension, on p.r.n. clonidine. 3. UTI, on ceftriaxone. Subjective Subjective No CP or SOB.Stress test pending today Objective Last 24 Hour Vital Signs Date Time Temp Pulse Resp B/P (MAP) Pulse Ox O2 Delivery O2 Flow Rate FiO2 06/23/20 12:00 97.3 60 20 149/72 (97) 96 06/23/20 09:00 Room Air 06/23/20 08:00 97.3 61 20 140/72 (94) 98 06/23/20 07:55 59 06/23/20 04:00 63 06/23/20 04:00 98.6 77 20 144/59 (87) 95 06/23/20 00:00 67 06/23/20 00:00 98.6 69 18 134/65 (88) 95 06/22/20 21:00 Room Air 06/22/20 20:00 68 06/22/20 20:00 97.4 65 18 138/69 (92) 95 06/22/20 16:00 97.7 62 18 128/68 (88) 98 06/22/20 16:00 62 Intake and Output 06/22/20 06/23/20 19:00 07:00 Intake Total 360 ml 240 ml Output Total 1500 ml 3300 ml Balance -1140 ml -3060 ml Intake Oral 360 ml 240 ml Output Urine Total 1500 ml 3300 ml # Voids 1 Laboratory Tests Test 06/22/20 16:00 06/22/20 21:33 06/23/20 06:30 06/23/20 11:28 Erythrocyte Sedimentation Rate 70 MM/HR (0-20) H Iron Level 43 ug/dL (50-175) L Total Iron Binding Capacity 164 ug/dL (250-450) L Percent Iron Saturation 26 % (15-50) Unsaturated Iron Binding 121 ug/dL (112-346) C-Reactive Protein, Quantitative 2.3 mg/dL (0.00-0.90) H Vitamin B12 Level 1103 PG/ML (193-986) H Methylmalonic Acid Pending Thyroid Stimulating Hormone (TSH) 1.285 uiU/mL (0.358-3.740) POC Whole Blood Glucose 211 MG/DL (74-106) H 162 MG/DL (74-106) H White Blood Count 8.5 K/UL (4.8-10.8) Red Blood Count 3.81 M/UL (4.70-6.10) L Hemoglobin 11.1 G/DL (14.2-18.0) L Hematocrit 34.1 % (42.0-52.0) L Mean Corpuscular Volume 89 FL (80-99) Mean Corpuscular Hemoglobin 29.1 PG (27.0-31.0) Mean Corpuscular Hemoglobin Concent 32.6 G/DL (32.0-36.0) Red Cell Distribution Width 12.3 % (11.6-14.8) Platelet Count 322 K/UL (150-450) Mean Platelet Volume 5.0 FL (6.5-10.1) L Neutrophils (%) (Auto) 61.2 % (45.0-75.0) Lymphocytes (%) (Auto) 26.9 % (20.0-45.0) Monocytes (%) (Auto) 6.5 % (1.0-10.0) Eosinophils (%) (Auto) 4.2 % (0.0-3.0) H Basophils (%) (Auto) 1.2 % (0.0-2.0) Sodium Level 135 MMOL/L (136-145) L Potassium Level 4.3 MMOL/L (3.5-5.1) # Chloride Level 104 MMOL/L (98-107) Carbon Dioxide Level 27 MMOL/L (21-32) Anion Gap 4 mmol/L (5-15) L Blood Urea Nitrogen 9 mg/dL (7-18) Creatinine 1.0 MG/DL (0.55-1.30) Estimat Glomerular Filtration Rate > 60 mL/min (>60) Glucose Level 176 MG/DL (74-106) H Calcium Level 8.1 MG/DL (8.5-10.1) L Microbiology Date/Time Source Procedure Growth Status 06/20/20 15:00 Blood Blood Culture - Preliminary NO GROWTH AFTER 48 HOURS Resulted 06/20/20 14:55 Blood Blood Culture - Preliminary NO GROWTH AFTER 48 HOURS Resulted Objective NECK: No JVD. LUNGS: Clear. CARDIOVASCULAR: Regular S1 and S2 with no gallop or murmur. ABDOMEN: Soft. EXTREMITIES: No pitting edema. His EKG is normal. Juno Irene MD Jun 23, 2020 12:42
--- NOTE | 2020-06-23 13:29 | NUR ---
*-* DISCHARGE PLANNING*-* PATIENT HAS BEEN REFERRED TO: [facility] P: [phone] PT NOTES FAXED TO [phone] Addendum: 06/23/20 at 1353 by MEY NASCIMENTO CM CONSULT NOTES FAXED REQUESTED
--- NOTE | 2020-06-23 13:37 | NUR ---
CASE MANAGEMENT: REVIEW 79 YEAR OLD MALE BIBA FROM HOME CC: HEADACHE X1 DAY . WEAKNESS . DENIES HEAD TRAUMA SI: UTI . CHEST PAIN . DIFFICULTY URINATING T 98.1 HR 58 RR 18 BP 158/66 SAT 96% ROOM AIR NA 131 GLUCOSE 321 UA GLUCOSE 4+ KETONES 2+ IS: CEFTRIAXONE IV X1 REGLAN IV X1 COMPAZINE IV X1 BENADRYL IV X1 PATIENT ADMITTED TO TELEMETRY UNIT 06/20/2020 DCP: PATIENT IS FROM HOME. PATIENT REFERRED TO [facility] FOR REHAB.
--- NOTE | 2020-06-23 13:45 | Consultation ---
DATE OF CONSULTATION: 06/21/2020 HISTORY OF PRESENT ILLNESS: This is a 79-year-old male patient. The patient came into the hospital because he is kind of confused, altered mental status, and apparently his cognition has declined below his baseline. He 00:23 chest pain, weakness, headache, peripheral edema. He basically is very confused, disorganized, with altered mental status, possible history of 00:34 poor historian. PAST MEDICAL PROBLEMS: The patient 00:40 bedside. He is a poor historian 00:43 verbally. The patient has a history of BPH, urinary retention, atelectasis, status post generalized weakness with chest pain, headache, peripheral edema, and 01:13. ALLERGIES: No known drug allergies. PSYCHOTROPIC MEDICATIONS ON ADMISSION: The patient does not appear to be on any psychotropic medications on admission. SUBSTANCE ABUSE HISTORY: Denies. PAIN ASSESSMENT: 06/23 pain. DEVELOPMENTAL PROBLEMS: Denies. FAMILY PSYCHIATRIC HISTORY: Unknown. SOCIAL HISTORY: The patient apparently 01:43. He is financially supported by [employer] and Medicare. STRENGTHS: He is motivated to get better. He is healthy. WEAKNESSES: He is impulsive. Minimal support system. PAST PSYCHIATRIC HISTORY: No previous psychiatric history is known. MENTAL STATUS EXAMINATION: This is a 79-year-old male. Appearance is disheveled. Attitude irritable and agitated. Affect guarded and restricted. Intellect poor. He does not know current events, does not know last four presidents. Mood depressed and anxious. Motor activity, psychomotor agitation. Attention span is poor. He cannot do serial sevens or spell world backwards. Orientation x2. He is oriented to person and place, not time or situation. Speech is pressured, nonsensical. Thought process, disorganized and illogical. Thought content, auditory hallucinations and paranoid delusions. Perception is poor because of perceptual disturbance such as auditory hallucinations and paranoid delusions. Abstract reasoning is poor. He does not understand proverbs and only has concrete thinking. Insight is poor because he does not recognize having psychiatric disorder. Judgment is poor. He does not accept consequences for his actions. Short-term memory, 3 out of 3 word recall after 5-minute delay with good short-term memory. Long-term memory is poor because he does not remember long-term events in his life such as the high school that he went to. No signs of any suicidal or homicidal thoughts. DIAGNOSES: 1. 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 2. Medical includes generalized weakness, headaches, chest pain, urinary retention. 3. Psychosocial stressors, financial. 4. Functional impairment 03:22. PLAN: My plan is to start this patient on a medical regimen of Namenda 5 mg twice a day to prevent any further decline in his cognition, and he just needs to be followed by Psychiatry 03:34 insight-oriented psychotherapy 03:44 this patient to help him understand and recognize psychiatric and physical condition so he has better understanding and better impulse control on the unit and better awareness 03:59 depression, anxiety. Chart was reviewed. Case was discussed with staff. Seen and assessed at bedside. Macarena Chen M.D. DR: THOM JOB#: [id number] CC:
--- NOTE | 2020-06-23 13:45 | Consultation ---
DATE OF CONSULTATION: 06/21/2020 ENDOCRINOLOGY CONSULTATION CONSULTING PHYSICIAN: Uzair Crawford M.D. REFERRING PHYSICIAN: Oscar Degroot D.O. REASON FOR CONSULTATION: I was asked to see this 79-year-old male by Dr. Oscar Degroot in endocrinology consultation for management of type 2 diabetes mellitus, out of control. chest pain, urinary tract infection, hypercholesterolemia . PHYSICAL EXAMINATION: . ABDOMEN: Obese. Bowel sounds present. EXTREMITIES: No edema. NEUROLOGICAL: Cranial nerves II through XII are grossly intact. Toes are downgoing to plantar stimulation. . ASSESSMENT: . Uzair Crawford M.D. DR: VANE JOB#: [id number] CC:
--- NOTE | 2020-06-23 13:45 | Geriatric Medicine Prog Note ---
DATE: 06/22/2020 SUBJECTIVE: The patient with poor diabetic control. OBJECTIVE: VITAL SIGNS: Stable. LUNGS: Clear. CARDIOVASCULAR: Regular rate. LABORATORY DATA: Glucose . PLAN: Continue Levemir insulin 15 units q.12 hours, . Uzair Crawford M.D. DR: BEATRIS JOB#: [id number] CC:
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
--- NOTE | 2020-06-23 14:20 | NUR ---
*-* DISCHARGE PLANNING*-* PATIENT HAS BEEN ACCEPTED TO: [facility] P: [phone] S/W LEANA, STATED WILL ACCEPT PATIENT, NEED RAPID COVID TEST. ~~~ NURSES NOTIFIED~~~~~~~~~~~~~~
--- NOTE | 2020-06-23 15:25 | Diagnostic Imaging Report ---
Indications: Chest pain Technique: Single day single isotope protocol utilized. Initially, resting images obtained using IV administration 10.5 millicuries 99M technetium Myoview. Subsequently, patient underwent lexiscan stress testing. See cardiology report for details. During Lexiscan infusion, IV administration 31.6 mCi 99 M technetium Myoview. SPECT and planar images obtained. SPECT images gated to 8 phases of the cardiac cycle were also obtained, and reformatted into cine images for evaluation of ejection fraction. Comparison: none Findings: Per cardiology report, patient experienced no symptoms. Per cardiology report, resting EKG demonstrates normal sinus rhythm. No ST changes seen with stress. Imaging demonstrates normal poststress perfusion. No fixed nor reversible poststress perfusion defects are demonstrated.. Calculated post stress ejection fraction 68%. No focal wall motion abnormality Impression: Nonischemic clinical response to pharmacologic stress, per cardiology report Nonischemic electrocardiographic response to pharmacologic stress, per cardiology report No imaging findings to suggest ischemia, at level of stress achieved. Calculated post stress ejection fraction 68%
[2020-06-23 16:00] VITALS: BP 132/68
--- NOTE | 2020-06-23 16:03 | NUR ---
*-*DISCHARGE PLANNING*-* PATIENT HAS BEEN ACCEPTED TO: [facility] P: [phone] ROOM# 405. [facility] SET FOR WILL CALL S/W [id number]
[2020-06-23] MEDS ORDERED: LEVEMIR100 UNIT/1 SUBQ (16:54)
[2020-06-23] MEDS ORDERED: NOVOLOG100 UNIT/4 SQ (16:55)
[2020-06-23] MEDS ORDERED: COLACE100 MG ORAL (16:55)
[2020-06-23] MEDS ORDERED: NAMENDA5 MG ORAL (16:56)
[2020-06-23] MEDS ORDERED: CATAPRES0.2 MG ORAL (16:58)
[2020-06-23] MEDS ORDERED: DULCOLAX10 MG RC (16:59)
--- NOTE | 2020-06-23 17:22 | NUR ---
*-*DISCHARGE PLANNED*-* PATIENT HAS BEEN ACCEPTED AND WILL BE DISCHARGED TO: [facility] P: [phone] FOR NURSE TO NURSE REPORT ROOM# 405. [facility] SET FOR 7:45PM S/W DAVID [id number]
--- NOTE | 2020-06-23 18:15 | Progress Note ---
DATE: 06/23/2020 SUBJECTIVE: This is a 79-year-old male patient. This patient came to the hospital with history of urinary tract infection and chest pain. He has got altered mental status, confusion, decline in cognition below his baseline that is why his attending has requested daily psychiatric consultation. He is in the hospital with atelectasis, BPH, urinary retention, diabetes, ,granulomatous lung disease, generalized weakness, and headache. MENTAL STATUS EXAMINATION: This is a 79-year-old male. His appearance is disheveled. His attitude is irritable and agitated. His affect guarded and restricted. Intellect poor. Mood depressed and anxious. Motor activity, psychomotor agitation. Attention span is poor. Orientation x2. Speech is low volume, slurred. Thought process disorganized and illogical. Thought content, auditory hallucinations and paranoid delusions. Insight and judgment is poor. DIAGNOSIS: Major depressive disorder, mild, recurrent with psychotic features, rule out dementia with psychosis. PLAN: Treat this patient with a medication regimen consisting of Namenda 5 mg twice a day, Ativan 0.5 mg every 6 hours p.r.n. anxiety and agitation. Twenty minutes of cognitive behavioral therapy to help him identify automatic negative thoughts and help him convert his negative thoughts to more positive thoughts to reduce depression, anxiety, mood lability. Chart reviewed and discussed with staff. Seen and assessed at bedside. Macarena Chen M.D. DR: THOM JOB#: [id number] CC:
--- NOTE | 2020-06-23 18:29 | NUR ---
NURSE NOTES: Gave report to Lorena at [facility]
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
--- NOTE | 2020-06-23 19:30 | NUR ---
NURSE NOTES: pt has D/C order, all discharge assessments and instructions done and pt verbally confirmed to understand all. pt is stable, V/S stable. XI Calderon D/C Fabiola shi and he gave report to [facility]. RN took pictures of body and uploaded. JW Willis is aware to check belongings.
--- NOTE | 2020-06-23 19:42 | NUR ---
HAND-OFF: Report given to JW Willis. pt is stable, no stress noted, still waiting for ambulance, endorsed plan of care, endorsed to check belongings.
--- NOTE | 2020-06-23 19:45 | NUR ---
NURSE NOTES: Received pt from JW Vasquez. Pt awake, alert, and talkative. Bed in lowest position. Call light within reach. Awaiting transport to acute rehab facility. Will continue to monitor.
[2020-06-23 20:00] VITALS: BP 150/70
[2020-06-23] MEDS ORDERED: Nortriptyline 10mg cap ORAL SCH (21:00)
--- NOTE | 2020-06-23 21:22 | NUR ---
NURSE NOTES: [facility] came to [facility] patient. IV removed. Belongings went home with visitor.
--- NOTE | 2020-06-24 09:15 | Consultation ---
DATE OF CONSULTATION: 06/23/2020 ADDENDUM The patient's head examination did not reveal any evidence of temporal artery tenderness. Ferny Price MD DR: NEDRA JOB#: [id number] CC:
--- NOTE | 2020-06-24 09:34 | Discharge Summary ---
Discharge Summary Discharge Summary _ DATE OF ADMISSION: 06/20/2020 DATE OF DISCHARGE: 06/23/2020 DISCHARGED BY: Dr. Degroot REASON FOR ADMISSION: 79 years old male with past medical history of dementia , presented with 1 day of headache. Patient reported generalized weakness and pointed to his chest saying that it hurts. Patient also reported difficulty urinating. Patient was unable to describe pain. Upon evaluation vital signs were stable. Laboratory work-up revealed no leukocytosis, hemoglobin 10.7, hematocrit 32.5. Sodium 131. BUN 19, creatinine 1.2. Glucose 320. Rapid COVID-19 was negative. Troponin negative. EKG revealed sinus rhythm no acute ischemic changes. AST 44, ALT 63. Urinalysis revealed +4 glucose , +2 ketones, no evidence of urinary tract infection. CT of the head revealed no acute intracranial pathology. Chest x-ray demonstrated mild patchy basilar opacity, representing atelectasis or developing infiltrate. Calcified granuloma right lung. In emergency department patient remained afebrile, no leukocytosis . Patient appeared to have significant difficulty voiding . Hicks catheter was inserted with retrieval of 1.9 L of urine. Patient looked chronically debilitated and subsequently was admitted for further management for urinary retention , BPH , headache , generalized weakness , atelectasis possible pneumonia , granulomatous lung disease . CONSULTANTS: coverage specialist rn Dr. Monge neurologist Dr. Price log haul operator surgery Dr. Montes psychiatrist Dr. Chen [facility]SE: Patient admitted to telemetry floor. Neurologist followed. Per neurologist, patient's headache may extend back to 2013 , when he sustained a head injury. Patient started on nortriptyline 10 mg for headache. Neurologist highly doubted temporal arteritis for years without any manifestations. Vitamin B12 and methylmalonic acid stable. If patient will not improve on nortriptyline, neurologist recommended short trial of steroids . Patient had Alzheimer dementia with superimposed metabolic encephalopathy due to hyperglycemia. Metabolic encephalopathy improved as blood sugar was controlled. Patient was on Namenda, which improved mental status modestly as well. Blood sugar was managed as per log haul operator recommendation with long-acting insulin pre-meal insulin and sliding scale of insulin and as needed. Hemoglobin A1c 14.8 , clearly not at goal. Diabetic diet and diabetic teaching provided . Patient was encouraged compliance with diabetic diet and medications. DVT prophylaxis provided. Stage Producer followed. Serial troponin were negative. EKG revealed no acute ischemic changes. Patient was ruled out for acute myocardial infarction. Echocardiogram demonstrated preserved ejection fraction 60%. No evidence of left ventricular hypertrophy. No evidence of wall motion abnormality. Right ventricular systolic pressure of 31. Myocardial perfusion scan was nonischemic with calculated post-rest ejection fraction of 68%. Blood pressure was closely monitored Clonidine was on board as needed for blood pressure spikes. Blood pressure remained stable. Psychiatric medication regimen was optimized as per psychiatrist. Patient was provided with cognitive behavioral therapy. Patient clinically stabilized and was ready for transfer to acute rehabilitation unit at [facility] for further rehabilitation. 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 DISCHARGE INSTRUCTIONS: Patient was discharged to Acute Rehabilitation Unit at [facility] [place]. Follow-up with medical provider at the hospital. I have been assigned to dictate discharge summary for this account. I was not involved in the patient's management. Berta Allen NP Jun 24, 2020 09:34
== END 2020-06-23 21:17 | disposition short-term general hospital (02) | DRG 637 ==
LOC: EDBD 13:15 → EMR 13:56 → 2E 16:40 → EDBEDREQ 18:44
DX: E11.65 Type 2 diabetes mellitus with hyperglycemia (principal); G93.41 Metabolic encephalopathy; N39.0 Urinary tract infection, site not specified; F33.0 Major depressive disorder, recurrent, mild; J98.11 Atelectasis; R07.9 Chest pain, unspecified; I10 Essential (primary) hypertension; N40.1 Benign prostatic hyperplasia with lower urinary tract symptoms; R33.8 Other retention of urine; R51 Headache; F03.90 Unspecified dementia, unspecified severity, without behavioral disturbance, psychotic disturbance, mood disturbance, and anxiety; J84.10 Pulmonary fibrosis, unspecified; R53.1 Weakness
CPT/HCPCS: 36415; 70450; 71045; 78452; 80048; 80053; 81003; 82607; 82962; 83036; 83540; 83550; 83921; 84443; 84484; 85025; 85610; 85651; 85730; 86140; 87040; 93005; 93017; 93306; 96365; 96375; 99285; J1815; J2765; J2785; J8499; S5561; U0002